=== PATIENT | female | born 1955 | race Asian ===

== ENCOUNTER 2019-03-27 15:36 | Emergency (ER) | payer OTHER, MEDICAID ==
[~2019-03-27] VITALS: Ht 152.4 cm; Wt 43.5 kg
[2019-03-27 15:56] VITALS: BP_SYST 148
[2019-03-27] MEDS ORDERED: LIDOCAINE 1% 10 MG/ML, 20 ML MDV INJ ONE (16:45)
[2019-03-27 17:36] VITALS: BP_SYST 148
== END 2019-03-27 17:36 | disposition home or self-care (01) ==
LOC: SED 15:36
DX: N76.4 Abscess of vulva (principal); R03.0 Elevated blood-pressure reading, without diagnosis of hypertension
CPT/HCPCS: 56405; 99284; J2001